=== PATIENT | female | born 1965 | race Hispanic/Latino ===

== ENCOUNTER 2017-09-01 10:09 | Emergency (ER) | payer OTHER ==
[2017-09-01] MEDS ORDERED: ONDANSETRON HCL 4 MG/2 ML VIAL ONE (10:38)
[2017-09-01] MEDS ORDERED: DEXAMETHASONE SOD PHOSPHATE 10MG/ML 1ML VIAL ONE (10:38)
[2017-09-01] MEDS ORDERED: MORPHINE SULFATE 4 MG/1ML SYG ONE (10:38)
[2017-09-01] MEDS ORDERED: KETOROLAC TROMETHAMINE 30MG/ML ONE (10:38)
== END 2017-09-01 12:07 | disposition home or self-care (01) ==
LOC: EDH 10:09
DX: M54.31 Sciatica, right side (principal); I10 Essential (primary) hypertension
CPT/HCPCS: 72100; 96374; 96375; 99284; J1100; J1885; J2270; J2405